=== PATIENT | female | born 1980 | race Caucasian/White ===

== ENCOUNTER 2023-07-07 14:41 | Outpatient (REF) | payer OTHER, SELFPAY ==
[2023-07-07 16:30] LABS: Folate 13.2 ng/mL (> or = 4.0); Vitamin B12 521 pg/mL (200-900)
== END 2023-07-07 14:42 | disposition home or self-care (01) ==
LOC: HO.LAB 14:41
PROVIDERS: PCP Family Medicine; Visit Provider Psychiatry & Neurology Neurology
DX: G31.84 Mild cognitive impairment of uncertain or unknown etiology (principal)
CPT/HCPCS: 36415; 82607; 82746

== ENCOUNTER 2024-10-18 13:59 | Emergency (ER) | payer OTHER, SELFPAY ==
[2024-10-18 14:43] VITALS: BP 120/82; PULSE 72; RESP 20; TEMP 37; O2SAT 99; BMI 25.2
--- NOTE | 2024-10-18 14:52 | ED_ITS ---
HPI - General Adult General Chief complaint: Wound/Laceration Stated complaint: finger lac Time Seen by Provider: 10/18/24 14:48 Source: patient, RN notes reviewed and old records reviewed Mode of arrival: ambulatory Limitations: no limitations History of Present Illness ED Provider: Paz [facility] narrative: Patient is a 44-year-old right-hand dominant female presenting to the emergency department with avulsion to tip of right thumb. States that she was using a mandoline last night and cut herself accidentally. States that the area is continuing to bleed. Unsure last Tdap. Denies any other injuries. complaint: thumb laceration Onset (ago): hour(s) Related Data Allergies Allergy/AdvReac Type Severity Reaction Status Date / Time No Known Allergies Allergy Verified 10/18/24 14:46 Review of Systems 2 Review of Systems: As per HPI Yes all other systems are reviewed and are negative Constitutional: Constitutional: Reports as per HPI Physical Exam ED Vital Signs: Vital Signs - 24 hr 10/18/24 14:43 Temperature 98.6 F Pulse Rate 72 Respiratory Rate 20 Blood Pressure 120/82 Pulse Oximetry 99 Oxygen Delivery Method Room Air BMI result Body Mass Index 25.2 Vital signs have been reviewed and appear to be correct. Blood pressure normal. Heart rate normal. Respiratory rate normal. Temperature normal. Oxygen saturation normal. Const General: cooperative, healthy appearing and no acute distress Orientation/consciousness: oriented to person, oriented to place, oriented to time and patient oriented x3 Limitations: no limitations HENMT Head: Yes normocephalic and Yes atraumatic Ears: external ears normal General nose exam: Normal external nose present Face and sinus: Yes face symmetric Mouth: oropharynx normal and moist mucous membranes Throat: Yes uvula midline Eyes Pupils: Equal, round and reactive pupils present Neck Neck: Yes normal visual inspection and Yes supple Resp Effort & Inspection: normal respiratory effort and able to speak in complete sentences Auscultation: clear to auscultation bilaterally Cardio Rate: regular rate Rhythm: regular rhythm Heart sounds: S1 normal heart sound present and S2 normal heart sound present GI Palpation (GI): Soft to palpation and nontender Auscultation: normoactive bowel sounds General: Yes no CVA tenderness Back/Spine/Pelvis Back: no CVA tenderness Skin General skin exam: elasticity normal and turgor normal Neuro General: oriented to person, oriented to place, oriented to time, patient oriented x3, moves all extremities, no focal motor deficits and CN's II-XI intact bilaterally Cranial nerves: Yes Equal, round and reactive pupils present Cognition (Neuro): normal cognition Extrem General: Yes full ROM, Yes no pedal edema and Yes no calf tenderness Hand/finger images: 2 1. avulsion with minor oozing of blood Psych Mental Status: mental status grossly normal Affect: normal affect Thought process: Normal thought process present Medical Decision Making Medical Decision Making [facility] Narrative: Patient is a 44-year-old right-hand dominant female presenting to the emergency department with avulsion to tip of right thumb. On exam patient is awake, A+Ox3, VS WNL, afebrile, normal neurological exam without focal deficits, physical exam findings as above. Given reported symptoms and physical exam findings, initial differential includes but is not limited to laceration, avulsion. Wound cleansed and Surgicell with dressing applied. Wound care instructions discussed with patient. Tdap updated. Return precautions discussed. No signs of infection. Follow up with PCP as needed. Patient verbalized understanding of and agreement with plan. Differential Diagnosis Differential Diagnoses: The differential diagnosis associated with the presentation includes As per [facility] External Record Review External record reviewed: Inpatient record, Office record and Outpatient record Prescription Management I considered prescription management with: Other Discharge Plan Discharge Clinical Impression: Laceration of thumb Patient Disposition: Home, Self-Care Instructions: Diphtheria/Acellular Pertussis/Tetanus Vaccine (By injection), Finger Laceration (ED) Additional Instructions: You have been evaluated in the emergency department today for a laceration to your thumb. Your laceration was bandaged in the emergency department with a material called surgicell. Leave this on until it falls off on it's own. Please keep the area surrounding the laceration clean and dry and keep dressing in place for the next 24-48 hours. After that please change the dressing and assess the wound daily. Do not submerge the wound in water until the wound has fully healed (no washing dishes, swimming, hot tubs, etc. and ESPECIALLY no outdoor water). Your Tdap (tetanus vaccine) was updated at today's visit. If you develop fever, redness, swelling at the site of your laceration, or thick yellow drainage please come back to the ER for a wound check. Print Language: Portuguese
[2024-10-18] MEDS: Diphth,Pertus(ACell),Tet Adult 0.5 ML SYRINGE IM (14:54)
[2024-10-18 15:01] VITALS: BP 120/82; PULSE 72; RESP 20; TEMP 37; O2SAT 99
== END 2024-10-18 15:02 | disposition home or self-care (01) ==
PROVIDERS: Emergency Provider Emergency Medicine Emergency Medical Services; PCP Family Medicine
DX: S61.011A Laceration without foreign body of right thumb without damage to nail, initial encounter (principal); W26.8XXA Contact with other sharp object(s), not elsewhere classified, initial encounter; Y93.G3 Activity, cooking and baking; Y92.000 Kitchen of unspecified non-institutional (private) residence as the place of occurrence of the external cause; Y99.8 Other external cause status; Z23 Encounter for immunization
CPT/HCPCS: 90471; 90715; 99282; 99284